=== PATIENT | male | born 1965 | race American Indian/Alaskan Native ===

== ENCOUNTER 2019-07-03 07:59 | Day surgery (SDC) | payer OTHER ==
[~2019-07-03 07:59] MED LIST: SODIUM CHLORIDE 0.9% 1000 ML 1,000 ML IV SCH
--- NOTE | 2019-07-03 09:00 | Anesthesia Consultation ---
Anesthesia Consult and Med Hx Date of service: 07/03/19 - Airway Anesthetic Teeth Evaluation: Good ROM Head & Neck: Adequate Mental/Hyoid Distance: Adequate Mallampati Class: Class I Intubation Access Assessment: Good - Pulmonary Exam CTA: Yes - Cardiac Exam Cardiac Exam: RRR - Pre-Operative Health Status ASA Pre-Surgery Classification: ASA2 Proposed Anesthetic Plan: MAC - Pulmonary Hx Sleep Apnea: Yes - Additional Comments Anesthesia Medical History Comments: previous left wrist surgery...has neuropathic pain and takes gabapentin
--- NOTE | 2019-07-03 09:00 | Anesthesia Day of Surgery ---
Anesthesia Day of Surgery - Day of Surgery Patient Examined: Yes Patient H&P Reviewed: Yes Patient is NPO: Yes
[2019-07-03] MEDS ORDERED: PROPOFOL 200 MG/20 ML VIAL IV ONE ×3 (09:48)
--- NOTE | 2019-07-03 10:08 | Short Stay Summary ---
Short Stay Documentation Date of service: 07/03/19 Narrative H&P: Patient is a 54 yo aam who presents for surveillance colonoscopy for h/o colon polyps; denies gi complaints at this time. - History Past Medical History: other (see clinic note, no changes) Past Surgical History: Other (no changes from clinic note) Social history: no significant social history - Allergies and Medications Current Medications: Allergies No Known Allergies Allergy (Verified 07/02/19 14:27) Home Medications Medication Instructions Recorded Confirmed Last Taken Type Aspirin BABY CHEW TAB 81 mg PO DAILY 07/02/19 07/02/19 Unknown History Gabapentin 300 mg PO DAILY 07/02/19 07/02/19 Unknown History Motrin 800 MG tab 1 tab PO DAILY 07/02/19 07/02/19 Unknown History Active Medications Sodium Chloride (Nacl 0.9% 1000 Ml) 1,000 mls @ 50 mls/hr IV DIRECT VINAYAK Last Admin: 07/03/19 09:31 Dose: 50 mls/hr Documented by: - Physical exam General appearance: no acute distress Lungs: Clear to auscultation Heart: Regular rate, Normal S1, Normal S2 Gastrointestinal: normal - Brief post op/procedure progress note Date of procedure: 07/03/19 Pre-op diagnosis: surveillance colonoscopy Post-op diagnosis: other (colon polyp, diverticulosis) Procedure: Colonoscopy with biopsy polypectomy Anesthesia: MAC Findings: descending colon polyp diverticulosis internal hemorrhoids Surgeon: JASON BELTRAN Estimated blood loss: minimal Pathology: list (Jar A - descending colon polyp) Specimen disposition: to lab Condition: stable - Disposition Condition at discharge: Good Disposition: DC-01 TO HOME OR SELFCARE Short Stay Discharge Plan Follow up with: PATRICIA CAMPOS MD [Primary Care Provider] - 7 Days
--- NOTE | 2019-07-03 10:11 | Operative Report ---
Operative Report Operative Report: Colonoscopy Procedure Note with Biopsy Date of procedure: 07/03/2019 Endoscopist: Luis Carlos Baker Pre-op diagnosis/indication: Surveillance colonoscopy for personal history of colon polyps Post-op diagnosis: Small colon polyp, diverticulosis MEDICATIONS: MAC COMPLICATIONS: No immediate complications ESTIMATED BLOOD LOSS: Minimal DESCRIPTION OF PROCEDURE: After consent was obtained, the patient was placed in the left lateral decubitis position. The olympus colonoscope was inserted into the rectum under direct vision, and advanced to the cecum without difficulty. The quality of prep was good. The patient tolerated the procedure well. The patient's vital signs were monitored continuously throughout the procedure. FINDINGS: There was an ~2 mm sessile polyp in the sigmoid colon. The polyp was removed with cold biospy forceps and retrieved. Diverticulosis in the left side of the colon. Internal hemorrhoids were visualized on retro-flexion view. IMPRESSION: 1. Small colon polyp removed with cold biopsy forceps 2. Diverticulosis 3. Internal hemorrhoids RECOMMENDATIONS: -follow up pathology -high fiber diet daily -repeat colonoscopy for surveillance in 5 years
[2019-07-03 10:39] VITALS: BP 112/80
[2019-07-03] MEDS ORDERED: SODIUM CHLORIDE 0.9% 1000 ML 1,000 ML ONE (13:45)
[2019-07-03] MEDS ORDERED: LIDOCAINE MPF (2%) 20 MG/1 ML VIAL 5 ML ONE (13:45)
--- NOTE | 2019-07-03 15:47 | Post Anesthesia Evaluation ---
- Post Anesthesia Evaluation Patient Participated: Yes Airway Patent: Yes Stable Respiratory Function: Yes Nausea/Vomiting: No Temp > 96.8F: Yes Pain Manageable: Yes Adequeate Hydration: Yes Anesthesia Complications: No Block Receding Appropriately: Not Applicable Patient on Ventilator: No
== END 2019-07-03 10:46 | disposition home or self-care (01) ==
LOC: GIO 07:59
PROVIDERS: ATTEND Internal Medicine Gastroenterology
DX: Z12.11 Encounter for screening for malignant neoplasm of colon (principal); K63.5 Polyp of colon; K57.30 Diverticulosis of large intestine without perforation or abscess without bleeding; K64.8 Other hemorrhoids; G47.30 Sleep apnea, unspecified; M19.90 Unspecified osteoarthritis, unspecified site; Z79.899 Other long term (current) drug therapy; Z79.82 Long term (current) use of aspirin
CPT/HCPCS: 45380; 88305; J2704; J7030

== ENCOUNTER 2019-12-04 08:15 | Outpatient (CLI) | payer OTHER ==
[2019-12-04 08:38] LABS: Hematocrit 41.6 % (35.5-45.6); Hemoglobin 13.4 gm/dl (11.8-15.2); Mean Corpuscular HGB Conc 32 % (32-34); Mean Corpuscular Volume 75 fl (84-94); Platelet Count 144 K/mm3 (140-440); Red Blood Count 5.55 M/mm3 (3.65-5.03); Red Cell Distribution Width 16.5 % (13.2-15.2)
[2019-12-04 08:53] LABS: Alanine Aminotransferase 18 units/L (7-56); Albumin 3.8 g/dL (3.9-5); BUN/Creatinine Ratio 16; Blood Urea Nitrogen 11 mg/dL (9-20); Calcium 8.7 mg/dL (8.4-10.2); Chol/HDL Ratio 2.53 %; HDL Cholesterol 73 mg/dL (40-59); Hemolysis Index 3; LDL Cholesterol,Direct 119 mg/dL (50-130)
--- NOTE | 2019-12-04 10:16 | Fluoroscopy Report ---
UPPER GI HISTORY: Gastroesophageal reflux. Cough TECHNIQUE: Single and double contrast barium technique utilized to evaluate the esophagus, stomach, and duodenal C-loop. FINDINGS: To begin the exam, swallowing was evaluated in the lateral position under direct fluorosco py. Swallowing was normal. No mucosal irregularity, mass, mass effect, or critical stenosis. There were no abnormal tertiary c ontractions as seen with dysmotility. No hiatal hernia or gastroesophageal reflux was witnessed durin g this exam. IMPRESSION: Unremarkable exam. No evidence for gastroesophageal reflux or mucosal abnormality. Fluoroscopic time: 2.3 minutes Number of fluoroscopic images: 20 Signer Name: Robin Machado Jr, MD Signed: 12/04/2019 10:12 AM Workstation Name: [id number]
[2019-12-04 10:32] LABS: ABG Base Excess 1.9 mmol/L (-2.0-3.0); ABG HCO3 27.1 mmol/L (20.0-26.0); ABG Methemoglobin 0.6 % (0.0-1.5); ABG Oxygen Saturation 96.3 % (95.0-99.0); ABG PCO2 44.9 mm Hg; ABG PH 7.399 pH Units (7.350-7.450); ABG PO2 78.3 mm Hg (80.0-90.0)
--- NOTE | 2019-12-04 10:32 | XRay Report ---
CHEST 2 VIEWS INDICATION: ASTHMA/CHRONIC COUGH. COMPARISON: None available. FINDINGS: Support devices: None. Heart: Within normal limits. Pulmonary vasculature: Normal. Lungs/pleura: No acute air space or interstitial disease. No pneumothorax. Additional findings: None. IMPRESSION: 1. No acute findings. Signer Name: Freddie Huerta MD Signed: 12/04/2019 10:28 AM Workstation Name: [id number]
== END 2019-12-04 08:16 | disposition home or self-care (01) ==
LOC: FLUORO 08:15
PROVIDERS: ATTEND Internal Medicine
DX: R05 Cough (principal)
CPT/HCPCS: 36415; 36600; 71046; 74246; 80053; 80061; 82785; 82803; 84436; 84443; 85027

== ENCOUNTER 2020-06-13 08:50 | Emergency (ER) | payer OTHER ==
[2020-06-13 09:09] VITALS: BP 121/83
--- NOTE | 2020-06-13 09:56 | XRay Report ---
Left knee-4 views INDICATION: MAIN. COMPARISON: None. IMPRESSION: No acute osseous abnormality. 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 Moderate-sized suprapatellar effusion could be reactive in this setting. Signer Name: Tae Mccrary MD Signed: 06/13/2020 9:52 AM Workstation Name: [email or web address]
[2020-06-13] MEDS ORDERED: traMADol 50 MG TAB PO ONE (10:52)
--- NOTE | 2020-06-13 10:55 | Emergency Department Report ---
ED Extremity Problem HPI - General Chief complaint: Extremity Injury, Lower Stated complaint: nerve pain Time Seen by Provider: 06/13/20 10:51 Source: patient Mode of arrival: Ambulatory Limitations: No Limitations - History of Present Illness Initial comments: 55-year-old -[place] male presents to the emergency room complaining of left knee injury. Patient states that he has stepped down off a ladder and felt he had injured his left knee. Patient does admit that he has a history of arthritis to both knees and shoulders. Patient states that he takes ibuprofen and gabapentin but no relief today. MD Complaint: extremity pain, extremity swelling, joint swelling Onset/Timin -: days(s) Location: left, knee History of Same: Yes -: Yes arthralgia Severity scale (0 -10): 8 Quality: stabbing, sharp Consistency: constant Improves with: immobilization Worsens with: weight bearing, walking Associated Symptoms: denies other symptoms - Related Data Home Medications Medication Instructions Recorded Confirmed Last Taken Aspirin BABY CHEW TAB 81 mg PO DAILY 07/02/19 07/02/19 Unknown Gabapentin 300 mg PO DAILY 07/02/19 07/02/19 Unknown Motrin 800 MG tab 1 tab PO DAILY 07/02/19 07/02/19 Unknown Previous Rx's Medication Instructions Recorded Last Taken Type traMADoL [Ultram 50 MG tab] 50 mg PO Q6HR PRN #12 tablet 06/13/20 Unknown Rx Allergies Allergy/AdvReac Type Severity Reaction Status Date / Time No Known Allergies Allergy Verified 07/02/19 14:27 ED Review of Systems ROS: Stated complaint: nerve pain Other details as noted in HPI Comment: All other systems reviewed and negative ED Past Medical Hx - Past Medical History Previous Medical History?: Yes Hx Arthritis: Yes - Surgical History Past Surgical History?: Yes Additional Surgical History: Left hand - Social History Smoking Status: Never Smoker Substance Use Type: None - Medications Home Medications: Home Medications Medication Instructions Recorded Confirmed Last Taken Type Aspirin BABY CHEW TAB 81 mg PO DAILY 07/02/19 07/02/19 Unknown History Gabapentin 300 mg PO DAILY 07/02/19 07/02/19 Unknown History Motrin 800 MG tab 1 tab PO DAILY 07/02/19 07/02/19 Unknown History traMADoL [Ultram 50 MG tab] 50 mg PO Q6HR PRN #12 tablet 06/13/20 Unknown Rx ED Physical Exam - General Limitations: No Limitations General appearance: alert - Head Head exam: Present: atraumatic, normocephalic - Eye Eye exam: Present: normal appearance - ENT ENT exam: Present: mucous membranes moist - Expanded Lower Extremity Exam Left Hip exam: Present: normal inspection, full ROM Upper Leg exam: Present: normal inspection, full ROM. Absent: tenderness, swelling Knee exam: Present: full ROM, tenderness, swelling, effusion. Absent: abrasion, laceration, ecchymosis, deformity, crepidus Lower Leg exam: Present: normal inspection, full ROM. Absent: tenderness, swelling Ankle exam: Present: normal inspection, full ROM Foot/Toe exam: Present: normal inspection, full ROM Neuro vascular tendon exam: Present: no vascular compromise ED Course Vital Signs 06/13/20 09:07 Temperature 98 F Pulse Rate 72 Respiratory 18 Rate Blood Pressure 121/83 O2 Sat by Pulse 98 Oximetry ED Medical Decision Making - Radiology Data Radiology results: report reviewed Date of Service: 06/13/20 Procedure(s): XR knee 3V LT Accession Number(s): [id number] cc: ED DOC, MD Fluoro Time In Minutes: Left knee-4 views INDICATION: MAIN. COMPARISON: None. IMPRESSION: No acute osseous abnormality. 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 Moderate-sized suprapatellar effusion could be reactive in this setting. Signer Name: Tae Mccrary MD Signed: 06/13/2020 9:52 AM Workstation Name: [id number] Transcribed By: JW Dictated By: Tae Mccrary MD Electronically Authenticated By: Tae Mccrary MD Signed Date/Time: 06/13/20951 DD/ 1 TD/TT: - Medical Decision Making 55-year-old -[place] male presents to the emergency room complaining of left knee injury. Patient states that he has stepped down off a ladder and felt he had injured his left knee. Patient does admit that he has a history of arthritis to both knees and shoulders. Patient states that he takes ibuprofen and gabapentin but no relief today. Critical care attestation.: If time is entered above; I have spent that time in minutes in the direct care of this critically ill patient, excluding procedure time. ED Disposition Clinical Impression: Effusion, left knee, Arthritis of left knee Disposition: - TO HOME OR SELFCARE Is pt being admited?: No Does the pt Need Aspirin: No Condition: Stable Instructions: Knee Effusion (ED), Osteoarthritis (ED) Additional Instructions: X-ray shows you have a knee infusion and tricompartment arthritis. I recommend you following up with a orthopedic provider I have listed 1 below for your convenience. Prescriptions: traMADoL [Ultram 50 MG tab] 50 mg PO Q6HR PRN #12 tablet PRN Reason: Pain , Severe (7-10) Referrals: PRIMARY CAREMD [Primary Care Provider] - 3-5 Days RICHARD DEL CID MD [Staff Physician] - 3-5 Days
== END 2020-06-13 11:30 | disposition home or self-care (01) ==
LOC: ED 08:50
DX: M17.12 Unilateral primary osteoarthritis, left knee (principal); M25.462 Effusion, left knee; Z79.899 Other long term (current) drug therapy; Z98.890 Other specified postprocedural states

== ENCOUNTER 2020-08-31 08:52 | Outpatient (CLI) | payer OTHER ==
--- NOTE | 2020-08-31 10:37 | XRay Report ---
LEFT KNEE 2 VIEW(S) INDICATION / CLINICAL INFORMATION: PAIN IN LEFT KNEE (STANDING XRAY) COMPARISON: 06/13/2020 FINDINGS: BONES / JOINT(S): No acute fracture or subluxation. Advanced tricompartmental arthrosis similar to pr ior exam. SOFT TISSUES: Improved suprapatellar knee joint effusion. ADDITIONAL FINDINGS: None. Signer Name: Issa Stacy MD Signed: 08/31/2020 10:33 AM Workstation Name: [id number]
== END 2020-08-31 08:53 | disposition home or self-care (01) ==
LOC: XRAY 08:52
PROVIDERS: ATTEND Orthopaedic Surgery
DX: M17.12 Unilateral primary osteoarthritis, left knee (principal); M25.462 Effusion, left knee